=== PATIENT | male | born 1955 | race Caucasian/White ===

== ENCOUNTER 2020-03-24 14:26 | Outpatient (REF) | payer MEDICARE, SELFPAY | END 2020-03-24 14:27 | disposition home or self-care (01) | LOC: HO.HMGCLDS 14:26 | PROVIDERS: PCP Internal Medicine; Visit Provider Internal Medicine | DX: Z20.828 Contact with and (suspected) exposure to other viral communicable diseases (principal) | CPT/HCPCS: 36415; 87635 ==

== ENCOUNTER 2021-02-24 08:10 | Outpatient (REF) | payer MEDICARE, SELFPAY ==
[2021-02-24 11:47] LABS: Hematocrit 44.6 % (42-52); Hemoglobin 15.4 g/dl (14.0-18.0); Mean Corpuscular HGB Conc 34.5 g/dl (31.0-36.0); Mean Corpuscular Hemoglobin 28.8 pg (27.0-33.0); Mean Corpuscular Volume 83.4 fL (80-98); Mean Platelet Volume 12.4 fL (9.4-12.4); Platelet Count 130 X10*3/uL (160-400); Red Blood Count 5.35 X10*6/uL (4.60-5.80); Red Cell Distribution Width 12.9 % (11.0-16.0); White Blood Count 6.2 X10*3/uL (4.8-10.8)
[2021-02-24 12:15] LABS: Alanine Aminotransferase 20 U/L (0-40); Albumin Level 4.5 g/dL (3.5-5.0); Alkaline Phosphatase 74 U/L (39-117); Anion Gap 13 (12-20); Aspartate Amino Transferase 18 U/L (5-37); Bilirubin Total 1.6 mg/dL (0.0-1.0); Blood Urea Nitrogen 16 mg/dL (9-16); Calcium 9.6 mg/dL (8.4-10.2); Carbon Dioxide 28 mmol/L (22-29); Chloride 104 mmol/L (96-108); Cholesterol 137 mg/dL; Estimated Glomerular Filt Rate > 60; Glucose Random 158 mg/dL (60-115); HDL Cholesterol 53 mg/dL; LDL Cholesterol Calculated 67 mg/dl; Potassium 4.3 mmol/L (3.3-5.1); Sodium 141 mmol/L (135-145); Total Protein 6.4 g/dL (6.5-8.0); Triglycerides 89 mg/dL
[2021-02-24 12:19] LABS: Prostate Specific Antigen Scr 1.56 ng/mL (<0.05-4.0); Vitamin D 25-OH Total 23.9 ng/mL (>30)
[2021-02-24 12:55] LABS: Creatinine Urine 69.68 mg/dL
== END 2021-02-24 08:11 | disposition home or self-care (01) ==
LOC: HO.HMGCLDS 08:10
PROVIDERS: PCP Internal Medicine; Visit Provider Internal Medicine
DX: Z00.00 Encounter for general adult medical examination without abnormal findings (principal); Z12.5 Encounter for screening for malignant neoplasm of prostate; E11.9 Type 2 diabetes mellitus without complications; R53.83 Other fatigue; E55.9 Vitamin D deficiency, unspecified; E78.2 Mixed hyperlipidemia
CPT/HCPCS: 36415; 80053; 80061; 82043; 82306; 84153; 84443; 85027

== ENCOUNTER 2022-05-03 13:55 | Outpatient (REF) | payer MEDICARE, SELFPAY ==
[2022-05-03 15:07] LABS: Influenza A PCR NEGATIVE (Negative); Influenza B PCR NEGATIVE (Negative); Resp Syncy Virus RNA Qual PCR NEGATIVE (Negative); SARS COV2 PCR INHOUSE NEGATIVE (Negative)
== END 2022-05-03 13:56 | disposition home or self-care (01) ==
LOC: HO.LNP 13:55
PROVIDERS: Visit Provider Internal Medicine
DX: R43.9 Unspecified disturbances of smell and taste (principal); Z20.822 Contact with and (suspected) exposure to COVID-19
CPT/HCPCS: 0241U

== ENCOUNTER 2023-08-18 21:30 | Emergency (ER) | payer MEDICARE, SELFPAY ==
[2023-08-18 21:37] VITALS: BP 120/70; BP 121/49; PULSE 70; RESP 16; TEMP 36.5; O2SAT 98; BMI 26.1
--- NOTE | 2023-08-18 21:50 | ECG_ITS ---
Test Reason : ALLERGIC REACTION Blood Pressure : / mmHG Vent. Rate : 072 BPM Atrial Rate : 072 BPM P-R Int : 182 ms QRS Dur : 098 ms QT Int : 382 ms P-R-T Axes : 068 026 017 degrees QTc Int : 418 ms Normal sinus rhythm Normal ECG No previous ECGs available Referred By: Generic ED Physician Electronically Signed By:CHRISTINE COLORADO
--- NOTE | 2023-08-18 22:06 | ED_ITS ---
HPI - Allergic Reaction General Chief complaint: Allergic Reaction Stated complaint: FACE SWELLING, ?ALLERGIC REACTION Time Seen by Provider: 08/18/23 21:59 Source: patient, family and EMS Mode of arrival: EMS History of Present Illness HPI narrative: 2205: 67-year-old male arrives via EMS after having a dinner that included salmon and strawberries, both of which she has had previously, patient is also noted to take a daily low-dose lisinopril, but also had a typhoid vaccination today in preparation for a planned trip out of the country and states that began experiencing significant facial swelling and edema which involved both eyes swelling shut, swelling noted of the lower lip some voice scratchiness but otherwise no skin rashes or itchiness noted. He called EMS and they gave him 25 mg of Benadryl EN route and he reports improvement in the ice swelling but denies any current shortness of breath.. Related Data Home Medications Medication Instructions Recorded Confirmed apixaban 5 mg tablet (Eliquis) 5 mg PO BID 05/03/22 blood sugar diagnostic (OneTouch #10 ea 05/03/22 Verio test strips) digoxin 250 mcg (0.25 mg) tablet 250 mcg PO DAILY 05/03/22 diltiazem HCl 240 mg capsule,24 240 mg PO DAILY 05/03/22 hr,extended release dulaglutide 1.5 mg/0.5 mL mg subcut 05/03/22 subcutaneous pen injector (Trulicity) empagliflozin 25 mg tablet 25 mg PO DAILY 05/03/22 (Jardiance) finasteride 5 mg tablet 5 mg PO DAILY 05/03/22 metformin 1,000 mg tablet 1,000 mg PO BID 05/03/22 rosuvastatin 5 mg tablet 5 mg PO DAILY 05/03/22 sildenafil 100 mg tablet 50 - 100 mg PO 05/03/22 tamsulosin 0.4 mg capsule 0.4 mg PO DAILY 05/03/22 Previous Rx's Medication Instructions Recorded epinephrine 0.3 mg/0.3 mL 0.3 mg (0.3 mL) IM Q5M PRN 08/18/23 injection, auto-injector (EpiPen anaphylaxis #2 ea 2-Kenan) Allergies Allergy/AdvReac Type Severity Reaction Status Date / Time No Known Allergies Allergy Verified 08/18/23 21:36 Review of Systems Review of Systems: Pertinent positives and negatives as stated in HPI PMFSH Past Medical History Source: nursing notes reviewed Social History Social History Alcohol intake: never Smoked in Last 30 Days: No Use of substances other than those prescribed or required for medical reasons: No Advance Directives: No Advance Directives Information Provided: No Physical Exam ED Vital Signs: Vital Signs - 24 hr 08/18/23 21:37 08/18/23 22:24 08/19/23 00:33 Temperature 97.7 F 97.5 F Pulse Rate 70 70 81 Respiratory Rate 16 16 18 Blood Pressure 121/49 L 131/69 132/61 Pulse Oximetry 98 97 97 Oxygen Delivery Method Room Air Room Air Room Air BMI result Body Mass Index 26.1 VITAL SIGNS: Reviewed. GENERAL: Well developed, well nourished, in no acute distress. HEAD: Normocephalic/atraumatic EYES: PERRLA, EOMI, bilateral periorbital edema but able to open eyes EARS: Ext canals without abnormality, outer ears appear to be erythematous and mildly swollen NOSE: Nares patent bilateral OROPHARYNX: no oral lesions noted, posterior pharynx clear and non-erythematous without noted tonsillar enlargement/erythema/exudates, there is noted swelling to the predominant left lower lip, no tongue swelling is noted NECK: Supple, no adenopathy LUNGS: No stridor, no wheeze, Normal breath sounds. No adventitious sounds or accessory muscle use. SpO2<97> CARDIOVASCULAR: Regular rate and rhythm without noted murmurs ABDOMEN: Soft, non-tender, non-distended with bowel sounds. MUSCULOSKELETAL: No tenderness, deformities, or effusions noted on gross inspection. EXTREMITIES: No cyanosis, clubbing or edema. SKIN: Inspection of the skin reveals no rashes NEUROLOGIC: Alert and oriented x 4. Strength and sensation to light touch were grossly intact x 4. Medications Administered Discontinued Medications Generic Name Dose Route Start Last Admin Trade Name Freq PRN Reason Stop Dose Admin Famotidine 20 mg 08/18/23 22:06 08/18/23 22:14 Famotidine/Pf 20 Mg/2 Ml Vial IVPUSH 08/18/23 22:07 20 mg ONCE ONE Administration Methylprednisolone Sodium Succinate 60 mg 08/18/23 22:06 08/18/23 22:13 Methylprednisolone Sod Succ 125 Mg/2 Ml Vial IVPUSH 08/18/23 22:07 60 mg ONCE ONE Administration Medical Decision Making Medical Decision Making MDM Narrative: INTERVENTION: Pepcid, steroids This is a 67-year-old male with history and clinical presentation consistent with angioedema of unclear etiology: Lisinopril, salmon, strawberries, typhoid vaccine After observation patient continues to do well from a respiratory standpoint of view and swelling has significantly improved, states that he feels very good and is anxious to go home. He understands that he should not continue with his lisinopril tomorrow and that he should follow-up with his primary care doctor by calling the office 1st thing in the morning. Differential Diagnosis Differential Diagnoses: The differential diagnosis associated with the prese ntation includes Please see the discussion above Admission/Observation Consideration of admission/observation: Escalation of care including admission/observation considered Please see the discussion above Independent Interpretation I performed an independent interpretation of an: EKG Interpretation: Normal sinus rhythm, HR-72, no STEMI, ND/QRS/QTC is within normal limits. Critical Care Time Critical Care Time Critical Care Time: Yes Total Critical Care Time: 60 Attestation: I personally attest to this time spent taking care of the patient. Discharge Plan Discharge Clinical Impression: Angioedema, Allergic reaction Patient Disposition: Home, Self-Care Instructions: Angioedema (ED), Allergy Testing (ED) Additional Instructions: Recommend avoiding lisinopril, strawberries, salmon, future typhoid vaccines unless allergy testing specifically rules out any of these. Please call the office of your primary care doctor 1st thing in the morning to set up an appointment for re-evaluation and further outpatient management. You may need to continue to take Benadryl for the next 24 hours. An EpiPen set has been sent to your pharmacy and you should pick this up at your earliest convenience. Prescriptions: New epinephrine [EpiPen 2-Kenan] 0.3 mg/0.3 mL auto-injector 0.3 mg IM Q5M PRN (Reason: anaphylaxis) Qty: 2 0RF No Action Eliquis 5 mg tablet 5 mg PO BID diltiazem HCl 240 mg capsule,extended release 24 hr 240 mg PO DAILY Trulicity 1.5 mg/0.5 mL pen injector subcut rosuvastatin 5 mg tablet 5 mg PO DAILY finasteride 5 mg tablet 5 mg PO DAILY tamsulosin 0.4 mg capsule 0.4 mg PO DAILY sildenafil 100 mg tablet 50 - 100 mg PO (DME) OneTouch Verio test strips Strip See Rx Instructions .ROUTE DAILY Qty: 10 Rx Instructions: As directed Jardiance 25 mg tablet 25 mg PO DAILY metformin 1,000 mg tablet 1,000 mg PO BID digoxin 250 mcg (0.25 mg) tablet 250 mcg PO DAILY Referrals: Bunny Ritter MD [Primary Care Provider] -
[2023-08-18] MEDS: methylPREDNISolone Sod Succ 125 MG/2 ML VIAL 60 MG IVPUSH (22:13)
[2023-08-18] MEDS: Famotidine/PF 20 MG/2 ML VIAL IVPUSH (22:14)
[2023-08-18 22:24] VITALS: BP 131/69; PULSE 70; RESP 16; O2SAT 97
[2023-08-19 00:33] VITALS: BP 132/61; PULSE 81; RESP 18; TEMP 36.4; O2SAT 97
[2023-08-19 01:36] VITALS: BP 121/72; PULSE 79; RESP 16; TEMP 36.8; O2SAT 99
--- NOTE | 2023-08-19 01:37 | PC.NURSE ---
Patient is alert and oriented x4, VSS. Patient denies any pain. Facial swelling has significantly improved, respiratory status is stable.
== END 2023-08-19 01:42 | disposition home or self-care (01) ==
PROVIDERS: Emergency Provider Student in an Organized Health Care Education/Training Program; PCP Internal Medicine
DX: L24.6 Irritant contact dermatitis due to food in contact with skin (principal); L50.0 Allergic urticaria; T78.1XXA Other adverse food reactions, not elsewhere classified, initial encounter; R22.0 Localized swelling, mass and lump, head; X58.XXXA Exposure to other specified factors, initial encounter
CPT/HCPCS: 93005; 96374; 96375; 99284; 99285; J2930

== ENCOUNTER → 2023-08-18 21:50 | Outpatient (BNV) | payer MEDICARE, SELFPAY | PROVIDERS: Emergency Provider Student in an Organized Health Care Education/Training Program; PCP Internal Medicine; Visit Provider Internal Medicine | DX: R22.0 Localized swelling, mass and lump, head (principal) | CPT/HCPCS: 93010 ==

== ENCOUNTER 2024-03-08 14:37 | Outpatient (AMB) | payer MEDICARE, SELFPAY ==
--- NOTE | 2024-03-08 14:44 | AM.OFFWIN_ITS ---
Intake Vital Signs 03/08/24 14:45 Height 5 ft 10 in Weight 185 lb BMI 26.5 BP 96/50 L Blood Pressure Location Rt brachial Position Sitting Pulse 75 Pulse Source Pulse Oximeter Temp 98.5 F Temp Source Oral Pulse Oximetry (%) 97 Oxygen Delivery Method Room Air Intake Visit Reasons: EP cut finger trimming bushes. Intake Note: pt c/o cut on LT little finger. Cut with pruning jose j. TDAP 2 months ago. Happened 40 minutes ago Patient Tobacco Use Status: Never used Tobacco Allergies No Known Allergies Allergy (Verified 03/08/24 14:45) Do you need a note to return to daycare/school/sports/work: No HPI HPI Comments History of Present Illness Details Patient is a 68-year-old male here with his complaining of a wound on his left 5th digit that will not stop bleeding. He states he was pruning with tremors and accidentally got the tip of his finger. He states he is on Eliquis. He also states his last Tdap was just a few months ago as he just traveled internationally to [place] and was required to get a many vaccinations including the Tdap [facility] Social History Alcohol intake: never Patient Tobacco Use Status: Never used Tobacco Review of Systems Const All systems reviewed & are unremarkable except as noted in HPI and below Physical Exam Vital Signs: BMI result Body Mass Index 26.5 Const General: cooperative, healthy appearing, comfortable, no acute distress and well developed Orientation/consciousness: patient oriented x3 Limitations: no limitations HEENT Head: Yes normal to inspection Neck Neck: Yes normal visual inspection and Yes supple Skin Other: Left 5th digit volar aspect has a car, 1 cm laceration, no signs of infection noticed, wound is still bleeding however once the sutures were applied, bleeding was controlled. Neuro General: patient oriented x3 Office Procedures Laceration Repair Procedure Location: left 5th digit, volar aspect of the tip EMLA: 1% Lidocaine Text: After discussion of risk and benefits, written informed consent was obtained. The area was cleaned, prepped, and draped using sterile technique. The wound was debrided of any foreign material or devitalized tissue. Wound edges were approximated and closed using 2 (4.0) nylon sutures. Standard wound dressing was applied. Wound care instructions were given. The patient tolerated the procedure well. The patient was instructed to return for increased redness or red streaking, pain, swelling, pus, fevers, chills, or any other signs or symptoms of infection or worsening. DAC Patient was instructed to return for suture removal in 10-14 days. Assessment & Plan Assessment & Plan (1) Laceration of finger of left hand: Code(s): S61.219A - Laceration without foreign body of unspecified finger without damage to nail, initial encounter Qualifiers: Encounter type: initial encounter Finger: little finger Damage to nail status: without damage Foreign body presence: without foreign body Qualified Code(s): S61.217A - Laceration without foreign body of left little finger without damage to nail, initial encounter Plan: Irrigated wound, soaked it in hydrogen peroxide and sterile saline solution, then cleaned with Betadine, using sterile technique, 2 (4.0) monofilament nylon sutures applied, bleeding controlled, gave wound care instructions, patient to return in 10-14 days to remove the sutures. Plan See above Coding Level of Care Code New Pt Level 4 (65444) Diagnoses Laceration of left little finger without foreign body without damage to nail, initial encounter S61.217A Encounter type: initial encounter Finger: little finger Damage to nail status: without damage Foreign body presence: without foreign body
[2024-03-08 14:45] VITALS: BP 96/50; PULSE 75; TEMP 36.9; O2SAT 97; BMI 26.5
== END 2024-03-08 15:50 | disposition home or self-care (01) ==
PROVIDERS: PCP Internal Medicine; Visit Provider Physician Assistant
DX: S61.217A Laceration without foreign body of left little finger without damage to nail, initial encounter (principal)

== ENCOUNTER → 2024-03-08 14:37 | Outpatient (BNVA) | payer MEDICARE, SELFPAY | PROVIDERS: PCP Internal Medicine | DX: S61.217A Laceration without foreign body of left little finger without damage to nail, initial encounter (principal) | CPT/HCPCS: 99202 ==

== ENCOUNTER 2024-03-20 14:28 | Outpatient (AMB) | payer MEDICARE, SELFPAY ==
[2024-03-20 14:44] VITALS: BP 100/60; PULSE 78; O2SAT 98; BMI 26.8
--- NOTE | 2024-03-20 14:44 | AM.OFFWIN_ITS ---
Intake Vital Signs 03/20/24 14:44 Height 5 ft 10 in Weight 187 lb BMI 26.8 BP 100/60 Blood Pressure Location Rt brachial Position Sitting Pulse 78 Pulse Source Pulse Oximeter Pulse Oximetry (%) 98 Oxygen Delivery Method Room Air Intake Visit Reasons: EP stitch removal Intake Note: Patient here for stitch removal on left hand pinky Patient Tobacco Use Status: Never used Tobacco Allergies No Known Allergies Allergy (Verified 03/20/24 14:45) Do you need a note to return to daycare/school/sports/work: No HPI HPI Comments History of Present Illness Details 68 y/o male patient who presents to the walk in clinic for stitch removal. He had a cut on his left Pinky finger (5th finger) 12 days and had stitches placed. [facility] Social History Alcohol intake: never Patient Tobacco Use Status: Never used Tobacco Review of Systems Const All systems reviewed & are unremarkable except as noted in HPI and below Physical Exam Vital Signs: Last Vital Signs Pulse 78 03/20/24 14:44 BP 100/60 03/20/24 14:44 Pulse Ox 98 03/20/24 14:44 Oxygen Delivery Method Room Air 03/20/24 14:44 BMI result Body Mass Index 26.8 Const Orientation/consciousness: patient oriented x3 Skin Other: Two stitches removed left 5th finger. Wound healed, dry and clean. No redness or tenderness. General skin exam: no erythema Neuro General: patient oriented x3, gait normal and moves all extremities Psych Speech and movement: Normal speech and movement present Assessment & Plan Assessment & Plan (1) Visit for suture removal: Code(s): Z48.02 - Encounter for removal of sutures Plan: 2 sutures removed, Pt tolerated procedure well Wound nicely healed. Coding Level of Care Code Est Pt Level 4 (97031) Diagnoses Visit for suture removal Z48.02 Time Spent (min) 20
== END 2024-03-20 15:24 | disposition home or self-care (01) ==
PROVIDERS: PCP Internal Medicine; Visit Provider Nurse Practitioner Family
DX: Z48.02 Encounter for removal of sutures (principal)

== ENCOUNTER → 2024-03-20 14:28 | Outpatient (BNVA) | payer MEDICARE, SELFPAY | PROVIDERS: PCP Internal Medicine | DX: Z48.02 Encounter for removal of sutures (principal) | CPT/HCPCS: 99212 ==

== ENCOUNTER 2025-03-30 09:09 | Outpatient (AMB) | payer MEDICARE, SELFPAY ==
--- OUTSIDE RECORDS SUMMARY | 2025-02-15 05:15 | XMS_ITS ---
Author Organization [facility] Address [address] [place], [place] [id number] Care Team Providers Care Caser Up Name Role Phone MAYANK PIKE Primary Care Provider ALLERGIES Allergen (clinical drug ingredient) Drug/Non Drug Allergy documented on EMR Reaction Allergy Type Onset Date Status lisinopril Lisinopril angioedema Drug Allergy Acti ve REASON FOR VISIT 4w MEDICATIONS Medication SIG (Take, Route, Frequency, Duration) Notes Start Date End Date Status Eliquis 5 MG 1 Tablet Oral Twice a day for 90 days 01/18/2022 Active OneTouch Verio - USE ONCE PER DAY DIRECTED BY PHYSICIAN for 50 Active Rosuvastatin Calcium 5 MG 1 tablet Orall y Once a day for 90 days Active Atovaquone-Proguanil HCl 250-100 MG 1 tablet with food or milk Orally Once a day for 15 day(s) 01/18/2025 Active dilTIAZem HCl ER Beads 240 MG 1 capsule Orally Once a day Active Digoxin 250 MCG 1 tablet Orally Once a day Active EpiPen 2-Kenan 0.3 MG/0.3ML as directed Injection Active OneTouch Delica Plus [id number] 33 gauge TEST ONCE DAILY MISCELLANEOUS 08/17/2021 Active Mounjaro 7.5 MG/0.5ML as directed Subcut aneous every 7 days for 28 days 02/15/2025 Active metFORMIN HCl 1000 MG 1 tablet with a me al Orally Twice a day Active Jardiance 25 MG 1 tablet Orally Once a day Active SOCIAL HISTORY Tobacco Use: Social History Observation Description Date Details (start date - stop date) Never Smoker NA - NA Sex Assigned At : Social History Observation Description Sex Assigned At Unknown Smoking Question Answer Notes Are you a: never smoker VITAL SIGNS Height 68.25 in 02/15/2025 Weight 182.0 lbs 02/15/2025 Blood pressure systolic 110 mm Hg 02/16/20 25 Blood pressure diastolic 66 mm Hg 025 BMI 27.47 kg/m2 02/15/2025 Encounters Encounter Location Date Provider Diagnosis [facility] [address] [place] [address] 02/15/2025 MAYANK WALTHAM Type 2 diabetes mellitus with hyperglycemia, without long-term current use of insulin E11.65 and Essential (primary) hypertension I10 ASSESSMENTS Encounter Date Diagnosis Assessment Notes Treatment Notes Treatment Clinical Notes Section Notes 02/15/2025 Type 2 diabetes mellitus with hyperglycemia, without long-term current use of insulin (ICD-10 - E11.65) 1. Type 2 diabetes mellitus: After reviewing blood sugar data we decided to increase his Mounjaro to the 7.5 mg strength. He has been tolerating this medication well without GI side effects. He will let me know if this changes with the increase in dose. We will plan to recheck his A1c in 3 months. Last was borderline at 7.0 2. Hypertension: Stable on present regimen. No changes made today 02/15/2025 Essential (primary) hypertension (ICD-10 - I10) 1. Type 2 diabetes mellitus: After reviewing blood sugar data we decided to increase his Mounjaro to the 7.5 mg strength. He has been tolerating this medication well without GI side effects. He will let me know if this changes with the increase in dose. We will plan to recheck his A1c in 3 months. Last was borderline at 7.0 2. Hypertension: Stable on present regimen. No changes made today PLAN OF TREATMENT Medication Medication Name Sig Start Date Stop Date Notes dilTIAZem HCl ER Beads 240 MG 1 capsule Orally Once a day Mounjaro 5 MG/0.5ML INJECT 1 PEN SUBCUTA NEOUSLY ONCE A WEEK DIRECTED Mounjaro 7.5 MG/0.5ML as directed Subcut aneous every 7 days for 28 days 02/15/2025 metFORMIN HCl 1000 MG 1 tablet with a me al Orally Twice a day Jardiance 25 MG 1 tablet Orally Once a day Progress Notes * Examination Category Sub-Category Detail Notes Category Not es General Examination Heart: RSR, normal S1S2 Lungs: clear to auscultatio n Extremities: no edema General Appearance no apparent distress , pleasant Psych: alert, oriented X 3 Other normal affect History and Physical Notes * HPI (History of Present Illness) Category Sub-Category Detail Notes Category Not es General Patient present s for follow-up diabetes. We reviewed the data on his jamal today. Blood sugars are never lower than the 140s to 150s and spikes to the 180s after meals. He is not having any hypoglycemia. He is otherwise feeling well without any chest pain, palpitations or shortness of breath. He is not experiencing any abnormal bleeding on Eliquis
--- OUTSIDE RECORDS SUMMARY | 2025-02-27 10:30 | XMS_ITS ---
Author Organization [facility] Address [address], [place] [id number] Care Team Providers Care [employer] Name Role Phone MAYANK PIKE Primary Care Provider [phone] ALLERGIES Allergen (clinical drug ingredient) Drug/Non Drug Allergy documented on EMR Reaction Allergy Type Onset Date Status lisinopril Lisinopril angioedema Drug Allergy Acti ve REASON FOR VISIT Preop - eyelid surgery 03/20/25 Dr. Lundy, deferring flu to after upcoming travel- will get at local pharm MEDICATIONS Medication SIG (Take, Route, Frequency, Duration) Notes Start Date End Date Status Jardiance 25 MG 1 tablet Orally Once a day Active Eliquis 5 MG 1 Tablet Oral Twice a day 01/18/2022 Active Digoxin 250 MCG 1 tablet Orally Once a day Active Rosuvastatin Calcium 5 MG 1 tablet Orall y Once a day for 90 days Active Atovaquone-Proguanil HCl 250-100 MG 1 tablet with food or milk Orally Once a day for 15 day(s) 01/18/2025 Active Mounjaro 7.5 MG/0.5ML as directed Subcut aneous every 7 days 02/15/2025 Active dilTIAZem HCl ER Beads 240 MG 1 capsule Orally Once a day Active OneTouch Delica Plus [id number] 33 gauge TEST ONCE DAILY MISCELLANEOUS 08/17/2021 Active OneTouch Verio - USE ONCE PER DAY DIRECTED BY PHYSICIAN for 50 Active EpiPen 2-Kenan 0.3 MG/0.3ML as directed Injection Active metFORMIN HCl 1000 MG 1 tablet with a me al Orally Twice a day Active VITAL SIGNS Height 69.0 in 02/27/2025 Weight 188.2 lbs 02/27/2025 Blood pressure systolic 116 mm Hg 02/28/20 25 Blood pressure diastolic 62 mm Hg 025 BMI 27.79 kg/m2 02/27/2025 Encounters Encounter Location Date Provider Diagnosis [facility] [address] [place] [address] 02/27/2025 MAYANK PIKE Ptosis, 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 ; Essential (primary) hypertension I10 ; Type 2 diabetes mellitus without complications E11.9 ; Paroxysmal atrial fibrillation I48.0 and Secondary hypercoagulable state D68.69 ASSESSMENTS Encounter Date Diagnosis Assessment Notes Treatment Notes Treatment Clinical Notes Section Notes 02/27/2025 Ptosis, bilateral (ICD-10 - H02.403) 1. ptosis bilateral: Patient is low cardiovascular risk for proposed surgery. No additional preoperative testing is required 2. Hypertension: Well-controlled on present therapy. No changes made today 3. Type 2 diabetes mellitus: Stable blood sugars. Will hold Mounjaro the week before surgery and resume afterwards. 4. Paroxysmal atrial fibrillation: No recent recurrence. Stable on current medical therapy. Will hold Eliquis for 2 days prior to surgery 02/27/2025 Essential (primary) hypertension (ICD-10 - I10) 1. ptosis bilateral: Patient is low cardiovascular risk for proposed surgery. No additional preoperative testing is required 2. Hypertension: Well-controlled on present therapy. No changes made today 3. Type 2 diabetes mellitus: Stable blood sugars. Will hold Mounjaro the week before surgery and resume afterwards. 4. Paroxysmal atrial fibrillation: No recent recurrence. Stable on current medical therapy. Will hold Eliquis for 2 days prior to surgery 02/27/2025 Type 2 diabetes mellitus without complications (ICD-10 - E11.9) 1. ptosis bilateral: Patient is low cardiovascular risk for proposed surgery. No additional preoperative testing is required 2. Hypertension: Well-controlled on present therapy. No changes made today 3. Type 2 diabetes mellitus: Stable blood sugars. Will hold Mounjaro the week before surgery and resume afterwards. 4. Paroxysmal atrial fibrillation: No recent recurrence. Stable on current medical therapy. Will hold Eliquis for 2 days prior to surgery 02/27/2025 Paroxysmal atrial fibrillation (ICD-10 - I48.0) 1. ptosis bilateral: Patient is low cardiovascular risk for proposed surgery. No additional preoperative testing is required 2. Hypertension: Well-controlled on present therapy. No changes made today 3. Type 2 diabetes mellitus: Stable blood sugars. Will hold Mounjaro the week before surgery and resume afterwards. 4. Paroxysmal atrial fibrillation: No recent recurrence. Stable on current medical therapy. Will hold Eliquis for 2 days prior to surgery 02/27/2025 Secondary hypercoagulable state (ICD-10 - D68.69) 1. ptosis bilateral: Patient is low cardiovascular risk for proposed surgery. No additional preoperative testing is required 2. Hypertension: Well-controlled on present therapy. No changes made today 3. Type 2 diabetes mellitus: Stable blood sugars. Will hold Mounjaro the week before surgery and resume afterwards. 4. Paroxysmal atrial fibrillation: No recent recurrence. Stable on current medical therapy. Will hold Eliquis for 2 days prior to surgery PLAN OF TREATMENT Medication Medication Name Sig Start Date Stop Date Notes Jardiance 25 MG 1 tablet Orally Once a day Eliquis 5 MG 1 Tablet Oral Twice a day 01/18/2022 Mounjaro 7.5 MG/0.5ML as directed Subcut aneous every 7 days 02/15/2025 dilTIAZem HCl ER Beads 240 MG 1 capsule Orally Once a day metFORMIN HCl 1000 MG 1 tablet with a me al Orally Twice a day Progress Notes * Examination Category Sub-Category Detail Notes Category Not es General Examination HEENT: PERRLA, EOMI bilaterally, nose clear, oropharynx clear, no TM's normal, scleral icterus, , Normocephalic/atraumatic Neck: no lymphadenopathy, no thyroid abnormality, no bruit, normal ROM of C spine Heart: RRR, normal S1S2, no murmurs, clicks or rubs Lungs: clear to auscultatio n, no crackles, , no wheezes Abdomen: soft, non tender/non distended, no rebound tenderness, no guarding or rigidity, no masses palpated Extremities: no edema General Appearance no apparent distress Skin: no rash Neuro alert and oriented x 3, CN 2-12 intact, no focal motor abnormality, no tremor Peripheral pulses: bilaterally symetric al dorsalis pedis, posterior tibial, radial and Carotids Back: no spinal tenderness Rectal prostate enlarged Lymphatics No nodes in neck Psych: affect normal History and Physical Notes * HPI (History of Present Illness) Category Sub-Category Detail Notes Category Not es General Patient is feel ing well. He is send no recent infectious symptoms. He is not experiencing any chest pain or palpitations. He has had no bleeding on Eliquis, epistaxis or otherwise
--- OUTSIDE RECORDS SUMMARY | 2025-02-27 10:53 | XMS_ITS ---
Author Organization [facility] Address [address], [place] [id number] Care Team Providers Care Change Over Name Role Phone MAYANK PIKE Primary Care Provider [phone] REASON FOR VISIT Preop Encounters Encounter Location Date Provider Diagnosis [facility] [address] [place] [address] 02/27/2025 MAYANK PIKE PLAN OF TREATMENT No Information
--- OUTSIDE RECORDS SUMMARY | 2025-03-01 07:29 | XMS_ITS ---
Author Organization [facility] Address [address], [place] [id number] Care Team Providers Care Freight Solicitor Name Role Phone MAYANK PIKE Primary Care Provider [phone] REASON FOR VISIT re fax 02/27/25 pre op Encounters Encounter Location Date Provider Diagnosis [facility] [address] [place] [address] 03/01/2025 MAYANK PIKE PLAN OF TREATMENT No Information
--- OUTSIDE RECORDS SUMMARY | 2025-03-25 09:43 | XMS_ITS ---
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 Encounters Encounter Location Date Provider Diagnosis [facility] [address] [place] [address] 03/25/2025 MAYANK PIKE PLAN OF TREATMENT No Information
--- OUTSIDE RECORDS SUMMARY | 2025-03-30 09:12 | XMS_ITS | Patient Health Record ---
Author Organization [facility] Address [address], [place] [id number] Care Team Providers Care Pan Washer Name Role Phone MAYANK PIKE Primary Care Provider [place], NUR[facility] Unavailable [phone] ALLERGIES Allergen (clinical drug ingredient) Drug/Non Drug Allergy documented on EMR Reaction Allergy Type Onset Date Status lisinopril Lisinopril angioedema Drug Allergy Acti ve REASON FOR REFERRAL No Information MEDICATIONS Medication SIG (Take, Route, Frequency, Duration) Notes Start Date End Date Status Mounjaro 7.5 MG/0.5ML as directed Subcut aneous every 7 days 02/15/2025 Active dilTIAZem HCl ER Beads 240 MG 1 capsule Orally Once a day Active Jardiance 25 MG 1 tablet Orally Once a day Active metFORMIN HCl 1000 MG 1 tablet with a me al Orally Twice a day Active Eliquis 5 MG 1 Tablet Oral Twice a day 01/18/2022 Active OneTouch Delica Plus [id number] 33 gauge TEST ONCE DAILY MISCELLANEOUS 08/17/2021 Active OneTouch Verio - USE ONCE PER DAY DIRECTED BY PHYSICIAN for 50 Active Digoxin 250 MCG 1 tablet Orally Once a day Active EpiPen 2-Kenan 0.3 MG/0.3ML as directed Injection Active Rosuvastatin Calcium 5 MG 1 tablet Orall y Once a day for 90 days Active Atovaquone-Proguanil HCl 250-100 MG 1 tablet with food or milk Orally Once a day for 15 day(s) 01/18/2025 Active IMMUNIZATIONS Vaccine Route Administration Date Status Comme ramesh FLUAD Quadrivalent IM Intramuscular 03/24/2023 Administere d Pfizer COVID-19,mRNA, LNP-S, PF, 30mcg/0.3mL dose Unknown 08/06/2020 Administered Pfizer COVID-19,mRNA, LNP-S, PF, 30mcg/0.3mL dose Unknown 08/28/2020 Administered Pneumococcal Prevnar 13 IM Intramuscular 09/25/2009 Administered Pneumococcal Prevnar 13 Unknown 02/27/2020 Administered Pneumococcal, PPV 23 Unknown 09/25/2009 Administered Td (Tetanus Diphtheria) Unknown 09/25/2009 Administered TDAP Unknown 03/14/2014 Administered Zoster recombinant SC Subcutaneous 03/19/2014 Administered Zoster recombinant Unknown 07/03/2020 Administered [id number] 5 exp 03-05-2022 Zoster recombinant IM Intramuscular 09/23/2020 Administere d SOCIAL HISTORY Tobacco Use: Social History Observation Description Date Details (start date - stop date) Never Smoker NA - NA Sex Assigned At : Social History Observation Description Sex Assigned At Unknown Smoking Question Answer Notes Are you a: never smoker Alcohol Screen Question Answer Notes Did you have a drink containing alcohol in the p ast year? No Points 0 Interpretation Negative PROBLEMS Problem Type ICD Code Onset Dates Problem Status W/U Status Risk SNOMED Code Notes Problem Essential (primary) hypertension (I10) Active confirmed Essential hypertension (18962676) Problem Paroxysmal atrial fibrillation (I48.0) Active confirmed 364237445 Problem Type 2 diabetes mellitus without complications (E11.9) Active confirmed Type II diabete s mellitus without complication (801139773) Problem Right carpal tunnel syndrome (G56.01) Active confirmed 901954789816339 Problem Secondary hypercoagulable state (D68.69) Active confirmed 66232560 Problem Insomnia, unspecified type (G47.00) Active confirmed 512160163 Problem Type 2 diabetes mellitus with hyperglycemia, without long-term current use of insulin (E11.65) Active confirmed Hyperglycem ia due to type 2 diabetes mellitus (671634928603767) Problem Cataract of both eyes, unspecified cataract type (H26.9) Active confirmed 48181155 Problem Waldenstrom macroglobulinemia (C88.00) Active confirmed 086090721 Problem Mixed hyperlipidemia (E78.2) 009 Active confirmed Mixed hyperlipidemia (838120214) VITAL SIGNS Blood pressure diastolic 62 mm Hg 02/27/2025 Height 69.0 in 02/27/2025 Blood pressure systolic 116 mm Hg 02/27/2025 Weight 188.2 lbs 02/27/2025 BMI 27.79 kg/m2 02/27/2025 Encounters Encounter Location Date Provider Diagnosis [address] [address] 04/06/2024 MAYANK OSBORNEFORD Type 2 diabetes nicole itus without complication, without long-term current use of insulin E11.9 ; Essential (primary) hypertension I10 ; Paroxysmal atrial fibrillation I48.0 and Conjunctivitis of left eye, unspecified conjunctivitis type H10.[address] [address] 04/08/[address] [address] 04/11/[address] [address] 06/17/[address] [address] 06/17/[address] [address] 07/04/[address] [address] 07/04/[address] [address] 07/05/[address] [address] 07/12/2024 [facility] [address] [address] 07/12/[address] [address] 07/17/2024 MAYANK OSBORNEFORD Cataract of both eye s, unspecified cataract type H26.9 ; Type 2 diabetes mellitus without complication, without long-term current use of insulin E11.9 ; Essential (primary) hypertension I10 and Paroxysmal atrial fibrillation I48.[address] [address] 07/17/[address] [address] 07/18/2024 [facility] Type 2 diabetes nicole itus without complication, without long-term current use of insulin E11.9 [facility] [address] [place] [address] 07/24/2024 [facility] [address] [place] [address] 07/25/2024 [facility] [address] [place] [phone] 07/30/2024 [facility] [address] [place] [address] 08/27/2024 [facility] [address] [place] [id number] 09/05/2024 JOHN BEDFORD Medicare annual well ness visit, subsequent Z00.00 [facility] [address] [address] 09/05/2024 [facility] Type 2 diabetes nicole itus with hyperglycemia, without long-term current use of insulin E11.65 ; Essential (primary) hypertension I10 ; Paroxysmal atrial fibrillation I48.0 ; Mixed hyperlipidemia E78.2 ; Waldenstrom macroglobulinemia C88.00 and Encounter for general adult medical examination without abnormal findings Z00.[address] [facility] [address] [address] 09/06/2024 [facility] Type 2 diabetes nicole itus without complications E11.9 [facility] [address] [address] 09/06/2024 [facility] [address] [place] [address] 10/10/2024 [facility] [address] [place] [id number] 10/19/2024 [facility] [address] [address] 11/08/2024 [facility] Right carpal tunnel syndrome G56.01 ; Essential (primary) hypertension I10 ; Paroxysmal atrial fibrillation I48.0 and Type 2 diabetes mellitus without complications E11.9 [facility] [address] [address] 11/08/2024 [facility] [address] [address] 11/09/2024 [facility] [address] [facility] [place] [address] 11/13/2024 [facility] [address] [facility] [place] [address] 11/30/2024 [facility] [address] [place] [phone] 12/27/2024 [facility] [address] [place] [address] 01/15/2025 [facility] [address] [place] [address], [place] [address] 01/17/2025 [facility] [address] [place] [phone] 01/18/2025 [facility] Type 2 diabetes nicole itus with hyperglycemia, without long-term current use of insulin E11.65 ; Long-term (current) use of injectable non-insulin antidiabetic drugs Z79.85 ; Paroxysmal atrial fibrillation I48.0 ; Secondary hypercoagulable state D68.69 and Essential (primary) hypertension I10 [address] [address] 02/11/2025 [facility] Paroxysmal atrial fibrillation I48.[address] [address] 02/15/2025 [facility] Type 2 diabetes nicole itus with hyperglycemia, without long-term current use of insulin E11.65 and Essential (primary) hypertension I10 [address] [address] 02/27/2025 [facility] Ptosis, 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 ; Essential (primary) hypertension I10 ; Type 2 diabetes mellitus without complications E11.9 ; Paroxysmal atrial fibrillation I48.0 and Secondary hypercoagulable state D68.[address] [address] 02/27/2025 [facility] [address] [place] [phone] 03/01/[address] [address] 03/25/2025 [facility] ASSESSMENTS Encounter Date Diagnosis Assessment Notes Treatment Notes Treatment Clinical Notes Section Notes 02/11/2025 Paroxysmal atrial fibrillation (ICD-10 - I48.0) 02/15/2025 Type 2 diabetes mellitus with hyperglycemia, [...] on present regimen. No changes made today 01/18/2025 Long-term (current) use of injectable non-insulin antidiabetic drugs (ICD-10 - Z79.85) 1. Type 2 diabetes mellitus: We placed a freestyle jamal today and he will wear for the next 15 days and then we will review his data to help decide whether we need to alter his medication. 2. Paroxysmal atrial fibrillation: Stable on current medical therapy. No abnormal bleeding on Eliquis 3. Hypertension: Stable on current meds. No changes made today 01/18/2025 Type 2 diabetes mellitus with hyperglycemia, without long-term current use of insulin (ICD-10 - E11.65) 1. Type 2 diabetes mellitus: We placed a freestyle jamal today and he will wear for the next 15 days and then we will review his data to help decide whether we need to alter his medication. 2. Paroxysmal atrial fibrillation: Stable on current medical therapy. No abnormal bleeding on Eliquis 3. Hypertension: Stable on current meds. 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 [...] Eliquis for 2 days prior to surgery 11/08/2024 Right carpal tunnel syndrome (ICD-10 - G56.01) 1. Right carpal tunnel syndrome: Patient is low cardiovascular risk for proposed procedure. No additional preoperative testing required 2. Hypertension: Stable on present therapy. Will maintain current regimen 3. Paroxysmal atrial fibrillation: Patient will hold Eliquis for 2 days prior to surgery and resume the day after 4. Diabetes: Mounjaro will be held the week before and resumed afterwards. Blood sugars have been improving and last A1c was 7.4 11/08/2024 Essential (primary) hypertension (ICD-10 - I10) 1. Right carpal tunnel syndrome: Patient is low cardiovascular risk for proposed procedure. No additional preoperative testing required 2. Hypertension: Stable on present therapy. Will maintain current regimen 3. Paroxysmal atrial fibrillation: Patient will hold Eliquis for 2 days prior to surgery and resume the day after 4. Diabetes: Mounjaro will be held the week before and resumed afterwards. Blood sugars have been improving and last A1c was 7.4 09/06/2024 Type 2 diabetes mellitus without complications (ICD-10 - E11.9) 07/18/2024 Type 2 diabetes mellitus without complication, without long-term current use of insulin (ICD-10 - E11.9) 09/05/2024 Medicare annual wellness visit, subsequent (ICD-10 - Z00.00) AWV reviewed with pt 09/05/2024 Type 2 diabetes mellitus with hyperglycemia, without long-term current use of insulin (ICD-10 - E11.65) 1. Diabetes: A1c was up to 7.8 last draw. Working at diet. Tolerating current Mounjaro. Will plan to bump to the 5 mg dose when he is next ready for refill 2. Hypertension: Well controlled on present therapy. No changes made today 3. Paroxysmal atrial fibrillation: No obvious recurrence. Tolerating Eliquis without abnormal bleeding 4. Hyperlipidemia: We will update profile on Rosuvastatin 5. Waldenstrom's: Stable in remission. Follows closely with hematology 6. Routine healthcare maintenance: Colonoscopy is due in 2027. He will update fasting blood work. He is up-to-date with vaccinations 09/05/2024 Essential (primary) hypertension (ICD-10 - I10) 1. Diabetes: A1c was up to 7.8 last draw. Working at diet. Tolerating current Mounjaro. Will plan to bump to the 5 mg dose when he is next ready for refill 2. Hypertension: Well controlled on present therapy. No changes made today 3. Paroxysmal atrial fibrillation: No obvious recurrence. Tolerating Eliquis without abnormal bleeding 4. Hyperlipidemia: We will update profile on Rosuvastatin 5. Waldenstrom's: Stable in remission. Follows closely with hematology 6. Routine healthcare maintenance: Colonoscopy is due in 2027. He will update fasting blood work. He is up-to-date with vaccinations 07/17/2024 Cataract of both eyes, unspecified cataract type (ICD-10 - H26.9) 1. Cataracts bilateral eyes: Patient is low cardiovascular risk for proposed surgery. No additional preoperative testing required 2. Diabetes: A1c was mildly elevated 7.5 last check. Will recheck today. If similar may consider changing Trulicity 3. Hypertension: Well-controlled on present therapy. No changes made today 4. Paroxysmal atrial fibrillation: No obvious recent recurrence. Continue present medication 07/17/2024 Type 2 diabetes mellitus without complication, without long-term current use of insulin (ICD-10 - E11.9) 1. Cataracts bilateral eyes: Patient is low cardiovascular risk for proposed surgery. No additional preoperative testing required 2. Diabetes: A1c was mildly elevated 7.5 last check. Will recheck today. If similar may consider changing Trulicity 3. Hypertension: Well-controlled on present therapy. No changes made today 4. Paroxysmal atrial fibrillation: No obvious recent recurrence. Continue present medication 04/06/2024 Type 2 diabetes mellitus without complication, without long-term current use of insulin (ICD-10 - E11.9) 1. Diabetes: A1c has been stable and was 6.8 at his last check. Will update today present metformin and Trulicity 2. Hypertension: Stable on present regimen. No changes made today 3. Paroxysmal atrial fibrillation: Stable without obvious recent recurrence. Continues on diltiazem and Eliquis 4. Conjunctivitis: Minimal findings on exam today. Question allergic versus bacterial. Recommended warm compresses and she will let us know if he is not improving 04/06/2024 Essential (primary) hypertension (ICD-10 - I10) 1. Diabetes: A1c has been stable and was 6.8 at his last check. Will update today present metformin and Trulicity 2. Hypertension: Stable on present regimen. No changes made today 3. Paroxysmal atrial fibrillation: Stable without obvious recent recurrence. Continues on diltiazem and Eliquis 4. Conjunctivitis: Minimal findings on exam today. Question allergic versus bacterial. Recommended warm compresses and she will let us know if he is not improving 04/06/2024 Paroxysmal atrial fibrillation (ICD-10 - I48.0) 1. Diabetes: A1c has been stable and was 6.8 at his last check. Will update today present metformin and Trulicity 2. Hypertension: Stable on present regimen. No changes made today 3. Paroxysmal atrial fibrillation: Stable without obvious recent recurrence. Continues on diltiazem and Eliquis 4. Conjunctivitis: Minimal findings on exam today. Question allergic versus bacterial. Recommended warm compresses and she will let us know if he is not improving 07/17/2024 Essential (primary) hypertension (ICD-10 - I10) 1. Cataracts bilateral eyes: Patient is low cardiovascular risk for proposed surgery. No additional preoperative testing required 2. Diabetes: A1c was mildly elevated 7.5 last check. Will recheck today. If similar may consider changing Trulicity 3. Hypertension: Well-controlled on present therapy. No changes made today 4. Paroxysmal atrial fibrillation: No obvious recent recurrence. Continue present medication 09/05/2024 Paroxysmal atrial fibrillation (ICD-10 - I48.0) 1. Diabetes: A1c was up to 7.8 last draw. Working at diet. Tolerating current Mounjaro. Will plan to bump to the 5 mg dose when he is next ready for refill 2. Hypertension: Well controlled on present therapy. No changes made today 3. Paroxysmal atrial fibrillation: No obvious recurrence. Tolerating Eliquis without abnormal bleeding 4. Hyperlipidemia: We will update profile on Rosuvastatin 5. Waldenstrom's: Stable in remission. Follows closely with hematology 6. Routine healthcare maintenance: Colonoscopy is due in 2027. He will update fasting blood work. He is up-to-date with vaccinations 11/08/2024 Paroxysmal atrial fibrillation (ICD-10 - I48.0) 1. Right carpal tunnel syndrome: Patient is low cardiovascular risk for proposed procedure. No additional preoperative testing required 2. Hypertension: Stable on present therapy. Will maintain current regimen 3. Paroxysmal atrial fibrillation: Patient will hold Eliquis for 2 days prior to surgery and resume the day after 4. Diabetes: Mounjaro will be held the week before and resumed afterwards. Blood sugars have been improving and last A1c was 7.4 02/27/2025 Type 2 diabetes mellitus without complications [...] Eliquis for 2 days prior to surgery 01/18/2025 Paroxysmal atrial fibrillation (ICD-10 - I48.0) 1. Type 2 diabetes mellitus: We placed a freestyle jamal today and he will wear for the next 15 days and then we will review his data to help decide whether we need to alter his medication. 2. Paroxysmal atrial fibrillation: Stable on current medical therapy. No abnormal bleeding on Eliquis 3. Hypertension: Stable on current meds. No changes made today 04/06/2024 Conjunctivitis of left eye, unspecified conjunctivitis type (ICD-10 - H10.9) 1. Diabetes: A1c has been stable and was 6.8 at his last check. Will update today present metformin and Trulicity 2. Hypertension: Stable on present regimen. No changes made today 3. Paroxysmal atrial fibrillation: Stable without obvious recent recurrence. Continues on diltiazem and Eliquis 4. Conjunctivitis: Minimal findings on exam today. Question allergic versus bacterial. Recommended warm compresses and she will let us know if he is not improving 07/17/2024 Paroxysmal atrial fibrillation (ICD-10 - I48.0) 1. Cataracts bilateral eyes: Patient is low cardiovascular risk for proposed surgery. No additional preoperative testing required 2. Diabetes: A1c was mildly elevated 7.5 last check. Will recheck today. If similar may consider changing Trulicity 3. Hypertension: Well-controlled on present therapy. No changes made today 4. Paroxysmal atrial fibrillation: No obvious recent recurrence. Continue present medication 09/05/2024 Mixed hyperlipidemia (ICD-10 - E78.2) 1. Diabetes: A1c was up to 7.8 last draw. Working at diet. Tolerating current Mounjaro. Will plan to bump to the 5 mg dose when he is next ready for refill 2. Hypertension: Well controlled on present therapy. No changes made today 3. Paroxysmal atrial fibrillation: No obvious recurrence. Tolerating Eliquis without abnormal bleeding 4. Hyperlipidemia: We will update profile on Rosuvastatin 5. Waldenstrom's: Stable in remission. Follows closely with hematology 6. Routine healthcare maintenance: Colonoscopy is due in 2027. He will update fasting blood work. He is up-to-date with vaccinations 11/08/2024 Type 2 diabetes mellitus without complications (ICD-10 - E11.9) 1. Right carpal tunnel syndrome: Patient is low cardiovascular risk for proposed procedure. No additional preoperative testing required 2. Hypertension: Stable on present therapy. Will maintain current regimen 3. Paroxysmal atrial fibrillation: Patient will hold Eliquis for 2 days prior to surgery and resume the day after 4. Diabetes: Mounjaro will be held the week before and resumed afterwards. Blood sugars have been improving and last A1c was 7.4 02/27/2025 Paroxysmal atrial fibrillation (ICD-10 - I48.0) [...] Eliquis for 2 days prior to surgery 01/18/2025 Secondary hypercoagulable state (ICD-10 - D68.69) 1. Type 2 diabetes mellitus: We placed a freestyle jamal today and he will wear for the next 15 days and then we will review his data to help decide whether we need to alter his medication. 2. Paroxysmal atrial fibrillation: Stable on current medical therapy. No abnormal bleeding on Eliquis 3. Hypertension: Stable on current meds. No changes made today 09/05/2024 Waldenstrom macroglobulinemia (ICD-10 - C88.00) 1. Diabetes: A1c was up to 7.8 last draw. Working at diet. Tolerating current Mounjaro. Will plan to bump to the 5 mg dose when he is next ready for refill 2. Hypertension: Well controlled on present therapy. No changes made today 3. Paroxysmal atrial fibrillation: No obvious recurrence. Tolerating Eliquis without abnormal bleeding 4. Hyperlipidemia: We will update profile on Rosuvastatin 5. Waldenstrom's: Stable in remission. Follows closely with hematology 6. Routine healthcare maintenance: Colonoscopy is due in 2027. He will update fasting blood work. He is up-to-date with vaccinations 02/27/2025 Secondary hypercoagulable state (ICD-10 - D68.69) [...] Eliquis for 2 days prior to surgery 01/18/2025 Essential (primary) hypertension (ICD-10 - I10) 1. Type 2 diabetes mellitus: We placed a freestyle jamal today and he will wear for the next 15 days and then we will review his data to help decide whether we need to alter his medication. 2. Paroxysmal atrial fibrillation: Stable on current medical therapy. No abnormal bleeding on Eliquis 3. Hypertension: Stable on current meds. No changes made today 09/05/2024 Encounter for general adult medical examination without abnormal findings (ICD-10 - Z00.00) 1. Diabetes: A1c was up to 7.8 last draw. Working at diet. Tolerating current Mounjaro. Will plan to bump to the 5 mg dose when he is next ready for refill 2. Hypertension: Well controlled on present therapy. No changes made today 3. Paroxysmal atrial fibrillation: No obvious recurrence. Tolerating Eliquis without abnormal bleeding 4. Hyperlipidemia: We will update profile on Rosuvastatin 5. Waldenstrom's: Stable in remission. Follows closely with hematology 6. Routine healthcare maintenance: Colonoscopy is due in 2027. He will update fasting blood work. He is up-to-date with vaccinations PLAN OF TREATMENT Future Test Test Name Order Date Hemoglobin [id number] 09/05/2024 CBC, Platelet, w/o [id number] 09/05/2024 Lipid [id number] 09/05/2024 Comp. Metabolic Panel [id number] 2024 Insurance Providers Payer Name Payer Address Payer Phone Subscriber Number Group Number Insured Name Patient Relationship to Insured Coverage Start Date Coverage End Date MEDICARE [employer] [address] [place] [address] [id number] PRACHI MARSH Self - patient is the insured 3 [employer] [facility] [address] [place] [address] [phone] [id number] PRACHI MARSH Self - patient is the insured 9 MEDICAL (GENERAL) HISTORY Medical History History ICD Code metabolic/endocrine, Disease : diabetes mellitus, metabolic/endocrine, Disease : Diabetes, Problems: Metabolic disease, Added Date: 03/09/2015, Onset Date: 05/18/2009:Active Problems: Obstructive sleep apnea syndrome, Added Date: 03/09/2015, Onset Date: 12/24/2010:Active HCP- Olga Ferreira () Surgical History Surgery Date(Month/Year) TUR2022 pulmonary, Disease : Sleep apnea, Sx_Pro cedure : CPAP 12 cm H20 2010 HEENT, Disease : Tonsillitis, Sx_Procedu re : tonsillectomy gastrointestinal, Disease : Appendicitis, Sx_Procedure : Appendectomy Disease : BPH, Sx_Procedure : TURP [place] History Reason Date[place] [facility] [place]
--- OUTSIDE RECORDS SUMMARY | 2025-03-30 09:12 | XMS_ITS | Data Portability ---
Author Organization [place] [facility] Marianne Redd [place] Address [address] [place] [address] Assessment Encounter Date Assessment Date Assessment LastModified by Organization Details LastModified Time 07/26/2024 07/26/2024 The above findin gs were discussed in detail today with the patient. He has evidence of right carpal tunnel syndrome and diastases of the scapholunate interval without evidence of symptomatic wrist arthritis. We discussed the findings of carpal tunnel syndrome in detail today. Treatment options were discussed including continued conservative treatment with nocturnal splinting, activity modification, anti-inflammatories , further workup with a nerve conduction study and sometimes a cortisone injection versus surgical carpal tunnel release. He like to proceed with a nerve conduction study, I will order this and he will follow-up in 3 weeks or so to go over the results of the test. He understands that depending on the results, treatment options may be a cortisone injection or carpal tunnel release. In the meantime he will wear nocturnal splint, he can wear the splint during the day if there are certain activities that bring on his symptoms however he should not be in a splint at all time. He understands this. We briefly discussed his wrist x-rays which show scapholunate diastases without symptomatic pain. This can lead to wrist arthritis which may cause pain decreased range of motion or function in the future. He understands this and will continue to monitor. He will return in 3 weeks after obtaining nerve conduction study to go over the results. He understands that if he does need surgery, he can return to see me in the spring for discussion. All of his questions were answered, he is in agreement the plan. [email or web address] Not available 07/26/2024 09:08:07 09/04/2024 09/04/2024 [facility]. EMG was performed at [facility] on 08/27/2024. In EMG/nerve conduction study demonstrated moderate median neuropathy across the carpal tunnel. We discussed his symptoms. He is very frustrated with his complaints. We discussed options including continued splinting, corticosteroid injection and surgical option. He would like to proceed with surgery. As such, he will schedule follow-up with Dr. Burks upon her return to move forward with scheduling. ____ Patient was seen and evaluated by Ortiz Oliveros PA-C in indirect conjunction with Dr. Burks. The provider agrees with the history, physical examination, recommended tests/diagnostic imaging, and treatment plan. [email or web address] Not available 09/04/2024 11:59:54 10/10/2024 10/10/2024 The above findin gs were discussed with the patient, they have clinical and electrodiagnostic evidence of right moderate carpal tunnel syndrome. Pathology and expected prognosis were discussed. Treatment options include continued conservative treatment, splinting, injection, or surgical carpal tunnel release. They have failed nonoperative treatment and would like to proceed with surgery. We discussed endoscopic versus open carpal tunnel release and patient would prefer endoscopic carpal tunnel release. Risks of surgery were discussed with the patient which include but are not limited to: bleeding, infection, injury to nerves, tendons, vessels, pain, stiffness, non-relief of symptoms, pillar pain, recurrence, need to convert to open, as well as risk of anesthesia. They understand these risks and agreed to proceed, consent was obtained today. All questions were answered today. They are at increased risk for complications given their medical comorbidities, therefore clearance will be obtained prior to surgery. We will schedule surgery at their convenience. All questions were answered, they are in agreement with the plan. [email or web address] Not available 10/10/2024 09:22:38 12/05/2024 12/05/2024 The above findin gs are discussed in detail today with the patient. They are presenting for first post op visit status post carpal tunnel release, doing well. He finishes antibiotics today. His incision does not look infected there is no concern for drainage or erythema. He will continue to monitor his incision now that he is off of antibiotics. If he starts to experience any increased redness, increased pain, any drainage, he should call the office and be seen. They can start scar massage over their incision. They should not use oils or lotions for another week. No soaking incision until next week. They will continue with range of motion exercises and progressing activities as tolerated. They will hold off on heavy lifting until 6 weeks post op. All of their questions were answered, they are in agreement with the plan. They will return in 4 weeks for repeat evaluation. [email or web address] Not available 12/05/2024 09:46:15 Plan of Treatment Reminders Order Date Submit Date Provider Last Modified By Organization Details Last Modified Time Details Appointments None recorded. Lab None recorded. Referral neurologist referral - evaluate right carpal tunnel syndrome 2024 025 shahana Causey MD, [address] [place] [address] , [address], [place], [address], 09:48:51 Procedures None recorded. Surgeries carpal tunnel release (SURG) 2024 025 [email or web address] Not available 09:30:58 Imaging XR, wrist, 3 or more view 2024 025 constantine [email or web address] [facility], [address], [address], [place], [address], 10:38:03 Medication Orders None recorded. Patient TargetsNo targets recorded. Patient Instructions Encounter Date Encounter Id Patient Instructions Last Modified By Organization Details Last Modified Time 07/26/2024 [id number] views of the right wrist were ordered and reviewed today, this demonstrates scapholunate diastases with a DISI deformity. Maintained joint space of the radiocarpal and ulnocarpal joints. No other acute findings noted. [email or web address] Not available 07/26/2024 09:05:35 Reason for Referral Neurologist Referral for Car pal tunnel syndrome of right wrist evaluate right carpal tunnel syndrome Referring Physician: Jennifer Burks, Orthopedic Surgery, Encounter Date: 07/26/2024 Results Created Date Observation Date Name Description Value Unit Range Abnormal Flag Note LastModifiedBy Organization Detail LastModifiedTime 09/04/19 25 08/27/2024 elect romyo gram + nerve condu ction study No observ ation record ed. [email or web address] [facility] [address], [place], [address], 09/04/2024 08:57:30 11/09/19 25 09/05/2024 rhyth m strip , EKG* No observ ation record ed. [email or web address] Not Available 2024 11:01:57 Result Notes None recorded. Problems Name Problem SNOMED Code Status Onset Date Resolution Date Notes Provider Name and Address Organization Details Recorded Time Carpal tunnel syndrome of right wrist 173932658452382 Active 2024 Jennifer elam MD [address] [facility],[address], [place], [address], [place] [facility] 5 09:01:49 Pain of right wrist 152348823773647 Active 2024 ORTIZ OLIVEROS PA-C [address], [place], [address], [place] [facility] 11:56:38 Problem Notes None recorded. Procedures Surgical History Date Name Laterality Status Provider Name and Address Organization Details Recorded Time CARPAL TUNNEL RELEASE (SURG) completed Vilma Apple [place] - [facility] 11/20/2024 09:31:05 Imaging Results None recorded. Procedure Notes None recorded. Medical Equipment None Reported. Allergies No known drug allergies Medications Name Sig Start Date Stop Date Status Note LastModified by Organization Details LastModified Time amoxicillin 500 mg capsule TAKE 1 CAPSULE BY MOUTH THREE TIMES A DAY 07/26 completed Not Available Not Available Not Available diltiazem ER (XR/XT) 240 mg capsule,ext ended release 24 hr, controlled Take 1 mg every day by oral route. 10/10 completed Not Available Not Available Not Available ofloxacin 0.3 % eye drops INSTILL 1 DROP INTO LEFT EYE TWICE DAILY WHILE CONTACT LENS IN PLACE 10/10 completed Not Available Not Available Not Available diltiazem CD 240 mg capsule,ext ended release 24 hr TAKE 1 CAPSULE ONCE DAILY DIRECTED active Not Available Not Available No t Available atovaquone 250 mg-proguani l 100 mg tablet 09/04 completed Not Available Not Available Not Available diltiazem ER 240 mg capsule,24 hr,extended release TAKE 1 CAPSULE ONCE DAILY DIRECTED active Not Available Not Available No t Available digoxin 250 mcg (0.25 mg) tablet TAKE 1 TABLET BY MOUTH EVERY DAY active Not Available Not Available No t Available amoxicillin 500 mg tablet TAKE 1 TABLET THREE TIMES A DAY FOR 10 DAYS UNTIL GONE 07/26 completed Not Available Not Available Not Available ketorolac 0.5 % eye drops INSTILL 1 DROP INTO THE RIGHT EYE FOUR TIMES DAILY FOR 14 WEEKS 09/04 completed Not Available Not Available Not Available cephalexin 500 mg capsule TAKE 1 CAPSULE BY MOUTH EVERY 6 HOURS FOR 7 DAYS active Not Available Not Available No t Available metformin 1,000 mg tablet TAKE 1 TABLET BY MOUTH TWICE A DAY WITH MEALS active Not Available Not Available No t Available mupirocin 2 % topical ointment APPLY AM, NOON AND PM IN AND AROUND THE NOSE 12/05 completed Not Available Not Available Not Available epinephrine 0.3 mg/0.3 mL injection, auto-inject or 0.3 MG (0.3 ML) INTRAMUSC ULARLY EVERY 5 MINUTES NEEDED FOR ANAPHYLAX IS active Not Available Not Available No t Available azithromyci n 500 mg tablet 07/26 completed Not Available Not Available Not Available rosuvastati n 5 mg tablet TAKE 1 TABLET DAILY DIRECTED active Not Available Not Available No t Available OneTouch Verio test strips USE ONCE PER DAY DIRECTED BY PHYSICIAN active Not Available Not Available No t Available Eliquis 5 mg tablet TAKE 1 TABLET TWICE A DAY DIRECTED active Not Available Not Available No t Available bromfenac 0.07 % eye drops INSTILL 1 DROP INTO LEFT EYE EVERY DAY 12/05 completed Not Available Not Available Not Available Jardiance 25 mg tablet TAKE 1 TABLET DAILY DIRECTED active Not Available Not Available No t Available Trulicity 1.5 mg/0.5 mL subcutaneou s pen injector 09/04 completed Not Available Not Available Not Available OneTouch Delica Plus Lancet 33 gauge TEST ONCE DAILY MISCELLAN EOUS active Not Available Not Available No t Available Mounjaro 5 mg/0.5 mL subcutaneou s pen injector INJECT 1 PEN SUBCUTANE OUSLY ONCE A WEEK DIRECTED active Not Available Not Available No t Available Mounjaro 2.5 mg/0.5 mL subcutaneou s pen injector DIRECTED SUBCUTANE OUSLY INJECT 0.5ML EVERY 7 DAYS 28 DAYS 10/10 completed Not Available Not Available Not Available Vitals Date Recorded Body height Body mass index (BMI) Body weight Provider Name and Address Organization Details Last Updated DateTime 09/04/2024 177.8 cm 25.8 kg/m2 51386.63 g Kesha Albrechtersen [place] [facility] 09/04/2024 08:39:49 Date Recorded Body height Body mass index (BMI) Body weight Provider Name and Address Organization Details Last Updated DateTime 10/10/2024 177.8 cm 25.8 kg/m2 08503.63 g Sravanthi Gabby [facility] 10/10/2024 08:48:40 Date Recorded Body height Body mass index (BMI) Body weight Provider Name and Address Organization Details Last Updated DateTime 12/05/2024 177.8 cm 25.8 kg/m2 00147.63 g Ar Sweeney [place] [facility] 12/05/2024 09:21:08 Social History None recorded. Functional Status Question Answer Note LastModified by Organizat ion Details LastModified Time Do you use any illicit or recreational drugs? No [email or web address] Information not available 09/04/2024 Do you or have you ever used any other forms of tobacco or nicotine? No [email or web address] Information not available 09/04/2024 What is your level of alcohol consumption? None [email or web address] Information not available 09/04/2024 Mental Status None recorded. Family History Nothing Reported. Medical History Condition Response Coronary Artery Disease N Gout N Hyperthyroidism N MRSA N Blood Transfusion N Emphysema N COPD N Depression N Gastrointestinal Disease N Anxiety Disorder N Autoimmune disease N Arthritis Y Cancer Y Stroke N Neurologic Disorder N Arrhythmia N Rheumatoid Arthritis N Fibromyalgia N Kidney Disease N Adverse Reaction to Anesthesia N Brain Injury N Osteopenia N Bleeding Disorder N AIDS/HIV N Asthma N Amputation N Hepatitis N Pulmonary Embolism N Hypothyroidism N Pacemaker N Vascular Disease N High Cholesterol N Liver Disease N Organ Transplant N Allergies/Hayfever N Thyroid Problems N Anemia N Heart Attack (NH) N Diabetes Y Seizures/Epilepsy N Congestive Heart Failure (CHF) N Reflux/GERD N Sleep Apnea Y Aneurysm N Heart Disease N Hypertension N Osteoporosis N Past Encounters Encounter ID Performer Location Encounter Start Date Encounter Closed Date Diagnosis/Indication Diagnosis SNOMED-CT Code Diagnosis ICD10 Code Diagnosis IMO Codes Diagnosis Note [id number] MD ROBBIN Chavez [facility] [address] [facility] [address] [facility] [place] [id number] 07/26/2024 08:32:45 07/26/2024 09:12:24 Pain of right wrist [id number] 79294 M25.531 [id number] Carpal nalini fredy syndrome of right wrist 8131096668 11302 G56.01 [id number] NAZIA JOHNSON [place] [address] 09/04/2024 08:23:01 09/04/2024 08:50:47 Pain of right wrist 2468711163 92242 M25.531 [id number] Carpal nalini fredy syndrome of right wrist 9741522788 02094 G56.01 [id number] Jennifer Burks MD [place] [id number] 10/10/2024 08:44:26 10/10/2024 09:25:37 Carpal tunnel syndrome of right wrist 4252283088 95233 G56.01 [id number] [place] [address] 12/05/2024 09:07:44 12/05/2024 09:50:52 Carpal tunnel syndrome of right wrist 3646550529 79208 G56.01 [id number] Health Concerns Section Related Observation LastModified by Organization Detai ls LastModified Time None Recorded Concern Status LastModified by Organization Details LastModified Time None Recorded Advance Directives Directive None Recorded Payers Insurance Date Sequence Insurance Name Policy Number Policy Tony Covered Member ID Tony Member ID Guarantor Name 07/26/2024 1 [place] [employer] Zenon Ferreira [id number] Zenon Ayerseden 07/26/2024 2 [place] [id number] Zenon Ferreira [id number] Zenon Ayerseden 07/27/2024 [employer] - SPECIALITY CLAIMS (MEDICARE DME REGION A) Zenon Ferreira [id number] 20 Zenon Ferreira Notes Date Note Type Note Provider Name and Address Organization Details Recorded Time 07/26/2024 text/html ROS as noted in the HPI This is a 68-year-old rhpco-pjqa-rljkbwa t male who presents with right hand numbness and tingling and pain. This has been going on for about 3 years however has been progressive recently. He notes intermittent numbness and tingling in the first 3 fingers during the day especially when he is typing, driving or kayaking and started to note symptoms at night which wake him up from sleep. He is starting to have pain associated with the numbness. He has tried a brace which he wears during the day with activities which is somewhat helpful however has not been diligent with wearing it. He has not done anything else for treatment. Medical history significant for cancer, diabetes, sleep apnea, arthritis. Jennifer Burks MD [address] [place] [address],[address], [address], [place] [facility] 07/26/2024 10:28:42 09/04/2024 text/html ROS as noted in the HPI Patient is a 68-year-old male who returns today for follow-up of right wrist pain. He was last seen by Dr. Burks on 07/26/2024. Symptoms are consistent with carpal tunnel syndrome and there is recommended for an EMG/nerve conduction study. Testing was performed and he returns today to review the findings and options. He feels paresthesias are becoming more frequent and he is frustrated. He has already tried bracing and stretching. Nothing seems to be helping. ORTIZ OLIVEROS PA-C [address], [place], [address], [place] [facility] 09/04/2024 12:00:32 10/10/2024 text/html ROS as noted in the HPI He presents for follow-up of his right carpal tunnel syndrome. In the interim since he last saw me, he obtained a nerve conduction study to evaluate for severity of disease. He continues to have symptoms in the right hand which are intermittent. He has numbness and tingling and pain which is worse during the day with activity and can occur at night. He is wearing a brace with certain activities which are somewhat helpful. Medical history significant for cancer, diabetes, last A1c was 7.8,, sleep apnea, arthritis. Jennifer Burks MD [address], [place], [address], [facility] - [facility] 10/10/2024 09:22:48 12/05/2024 text/html ROS as noted in the HPI He presents for first postop visit status post right endoscopic carpal tunnel release, date of surgery 11/19/2024, he is 2 weeks postop. He did call last week with increased redness swelling and a little bit of drainage from his incision, I placed him on Keflex which he has been taking and finished taking today. He notes significant improvement in his incision with no redness, decrease swelling, and no drainage. He has been keeping it covered with a bandage. He has been limiting activities. He denies any fevers or chills. He has significant improvement in his nocturnal symptoms, he has mild numbness and tingling which goes into his middle finger which is intermittent. Jennifer Burks MD [address], [place], [address], [place] [facility] 12/05/2024 09:46:24
--- NOTE | 2025-03-30 09:13 | MHC.OFFWIV ---
Intake Vital Signs 03/30/25 09:14 Height 5 ft 10 in Weight 182 lb BMI 26.1 BP 108/66 Blood Pressure Location Rt brachial Position Sitting Respiration 16 Pulse 93 Pulse Source Pulse Oximeter Temp 98.1 F Temp Source Oral Pulse Oximetry (%) 97 Oxygen Delivery Method Room Air Intake Visit Reasons: EP, left thumb splinter, possible infection Intake Note: Pt is here today c/o Lt thumb ? infected due to a splinter Patient Tobacco Use Status: Never used Tobacco Allergies No Known Allergies Allergy (Verified 03/30/25 09:19) HPI EP, left thumb splinter, possible infection HPI Details Patient got a splinter in the pad of his left thumb. He noted increasing redness, pain and swelling. He used a pin which he says he sterilized in a flame to dig out all of the splinter yesterday. However, redness and swelling have increased. Otherwise, patient feels well. No fevers or chills. PFS Social History Alcohol intake: never Patient Tobacco Use Status: Never used Tobacco Review of Systems Const Details: See HPI Physical Exam Vital Signs: Last Vital Signs Temp 98.1 F 03/30/25 09:14 Pulse 93 03/30/25 09:14 Resp 16 03/30/25 09:14 BP 108/66 03/30/25 09:14 Pulse Ox 97 03/30/25 09:14 Oxygen Delivery Method Room Air 03/30/25 09:14 BMI result Body Mass Index 26.1 Const Other: Well-appearing General: no acute distress and well developed Nutritional Appearance: well nourished Orientation/consciousness: patient oriented x3 HEENT Head: Yes normocephalic and Yes atraumatic Eyes General: appearance normal, both eyes and all related structures Pupils: Equal, round and reactive pupils present EOM: EOMs intact bilaterally Resp Effort & Inspection: normal respiratory effort Neuro General: patient oriented x3 and gait normal Cranial nerves: Yes Equal, round and reactive pupils present Extrem Other: Pad of left thumb is swollen and erythematous with mild fluctuance and some drainage from wound. No remaining foreign body by inspection and transillumination. Normal sensation at distal finger tip though he does have some decreased sensation around the wound. Psych Affect: normal affect Assessment & Plan Assessment & Plan (1) Infection of skin: Code(s): L08.9 - Local infection of the skin and subcutaneous tissue, unspecified Plan: Infection of skin after a splinter at pad of left thumb Some drainage Will give him a script for cephalexin Elevate hand Warm soaks with Epsom salts 2 to 3 times a day. Encouraged drainage. Watch for any worsening swelling, redness or pus. Watch for streaking. Call or return to office if these occur. Coding Level of Care Code Est Pt Level 3 (61010) Diagnoses Infection of skin L08.9
[2025-03-30 09:14] VITALS: BP 108/66; PULSE 93; RESP 16; TEMP 36.7; O2SAT 97; BMI 26.1
== END 2025-03-30 10:31 | disposition home or self-care (01) ==
PROVIDERS: PCP Internal Medicine; Visit Provider Family Medicine
DX: L08.9 Local infection of the skin and subcutaneous tissue, unspecified (principal)

== ENCOUNTER → 2025-03-30 09:09 | Outpatient (BNVA) | payer MEDICARE, SELFPAY | PROVIDERS: PCP Internal Medicine | DX: S60.3 Other superficial injuries of thumb (principal); L08.9 Local infection of the skin and subcutaneous tissue, unspecified; X58.XXXD Exposure to other specified factors, subsequent encounter | CPT/HCPCS: 99212 ==